=== PATIENT | male | born 1970 | race Caucasian/White ===

== ENCOUNTER 2019-01-02 11:14 | Day surgery (SDC) | payer BC ==
[~2019-01-02 11:14] MED LIST: Metoclopramide 10 MG/2 ML SDV IV PRN; Sodium Chloride 0.9% 1,000 ML IV SCH; Sodium Chloride 0.9% 10 ML Syringe FLUSH PRN
[2019-01-02] MEDS ORDERED: Atropine 0.4 MG/ML SDV ONE (15:00)
[2019-01-02] MEDS ORDERED: Propofol 1,000 MG/100 ML SDV ONE (15:00)
--- NOTE | 2019-01-02 20:30 | OR ---
DATE OF OPERATION: 01/02/2019 SURGEON: Sonny Dawkins MD PREOPERATIVE DIAGNOSIS: Screening colonoscopy. POSTOPERATIVE DIAGNOSIS: Screening colonoscopy. PROCEDURE: Colonoscopy with polypectomy. ANESTHESIA: MAC. ESTIMATED BLOOD LOSS: Minimal. COMPLICATIONS: None. INDICATION FOR THE PROCEDURE: The patient is a 48-year-old male here today for screening colonoscopy. No previous colonoscopies. No change in bowel habits. No family history of colon cancer. DESCRIPTION OF PROCEDURE: Informed consent was obtained with the patient. The patient was taken to the operating room, placed on table in left lateral decubitus position. Monitored anesthesia care was administered. Digital rectal exam performed and was normal. Colonoscope then advanced through the anus directed toward the cecum. Cecum was reached and identified by appendiceal orifice as well as ileocecal valve. Colonoscope was then slowly withdrawn. He did have a small sessile polyp in the sigmoid colon. This was removed by hot biopsy forceps. The remainder of the colon was otherwise unremarkable. Rectum was also unremarkable. Colonoscope then withdrawn. FINDINGS: Sigmoid polyp. RECOMMENDATIONS: We will follow up on pathology. Otherwise, we would recommend repeat surveillance colonoscopy in 5 years. ALPHONSO /[id number]
== END 2019-01-02 16:40 | disposition home or self-care (01) ==
LOC: LB.SDS 11:14
PROVIDERS: ATTEND Surgery
DX: Z12.11 Encounter for screening for malignant neoplasm of colon (principal); D12.5 Benign neoplasm of sigmoid colon
CPT/HCPCS: 45384; 88305; J0461; J2704; J7030; G0121